=== PATIENT | male | born 1955 | race Caucasian/White ===

== ENCOUNTER 2019-03-11 17:56 | Emergency (ER) | payer OTHER, MEDICARE ==
[~2019-03-11] VITALS: Ht 154.9 cm; Wt 92.2 kg
[2019-03-11 18:21] VITALS: Ht 154.9 cm; Wt 92.2 kg
[2019-03-11 20:02] VITALS: BP 136/69
== END 2019-03-11 20:02 | disposition home or self-care (01) ==
LOC: ED 17:56
DX: S43.005A Unspecified dislocation of left shoulder joint, initial encounter (principal); X58.XXXA Exposure to other specified factors, initial encounter; Y93.89 Activity, other specified; Y92.89 Other specified places as the place of occurrence of the external cause; Y99.8 Other external cause status
CPT/HCPCS: J1885